=== PATIENT | female | born 1995 | race Caucasian/White ===

== ENCOUNTER 2017-01-15 05:12 | Emergency (ER) | payer BC, OTHER ==
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
== END 2017-01-15 07:58 | disposition disaster alternative care site (69) ==
LOC: GACC 05:12
PROC: 0HQEXZZ Repair Left Lower Arm Skin, External Approach (ICD-10-PCS; principal; 2017-01-15)
DX: S51.812A Laceration without foreign body of left forearm, initial encounter (principal); M54.6 Pain in thoracic spine; V49.40XA Driver injured in collision with unspecified motor vehicles in traffic accident, initial encounter